=== PATIENT | male | born 1945 | race Caucasian/White ===

== ENCOUNTER → 2019-10-08 | Outpatient (CLI) | payer MEDICARE ==
[~2019-10-08] MED LIST: CINNAMON; DIOVAN HCT 1601 EACH PO; FISH OIL; FOLIC ACID1 MG PO; IRON; METFORMIN HCL500 MG PO; NAPROXEN500 MG PO; VITAMIN B12; VITAMIN D3
== END ==
LOC: CARD 08:53
PROVIDERS: ATTEND Family Medicine
DX: I73.9 Peripheral vascular disease, unspecified (principal); E11.9 Type 2 diabetes mellitus without complications; I10 Essential (primary) hypertension; I25.10 Atherosclerotic heart disease of native coronary artery without angina pectoris; E78.2 Mixed hyperlipidemia; F51.01 Primary insomnia
CPT/HCPCS: 93925

== ENCOUNTER → 2021-02-22 | Day surgery (SDC) | payer MEDICARE ==
[2021-02-17 12:14] LABS: BASOPHILS # (AUTO) 0.1 (0.0-0.1); BASOPHILS % 0.8 % (0.0-1.0); EOSINOPHILS # (AUTO) 0.1 (0.0-0.4); EOSINOPHILS % 1.8 % (0.0-6.0); HEMATOCRIT 37.9 % (38.2-49.6); HEMOGLOBIN 12.9 g/dL (14.0-18.0); LYMPHOCYTES # (AUTO) 1.3 (1.0-3.2); LYMPHOCYTES % 21.4 % (18.0-39.1); MEAN CORPUSCULAR HEMOGLOBIN 33.8 pg (28-32); MEAN CORPUSCULAR VOLUME 99.2 fL (81-99); MONOCYTES # (AUTO) 0.6 (0.2-0.8); MONOCYTES % 10.4 % (4.4-11.3); NEUTROPHILS # (AUTO) 3.9 (2.1-6.9); NEUTROPHILS % 65.3 % (38.7-80.0); PLATELET COUNT 217 x10e3/uL (140-360); RED BLOOD COUNT 3.82 x10e6/uL (4.3-5.7); RED CELL DISTRIBUTION WIDTH 14.3 % (11.7-14.4)
[2021-02-17 12:48] LABS: ANION GAP 16.2 mmol/L (8-16); CALCIUM 9.5 mg/dL (8.4-10.2); CREATININE, SERUM 1.26 mg/dL (0.72-1.25); POTASSIUM 4.2 mmol/L (3.5-5.1)
[~2021-02-22] VITALS: Ht 172.7 cm; Wt 95.3 kg
[~2021-02-22] MED LIST changes: +AMIODARONE HCL200 MG PO; +AMLODIPINE BESY10 MG PO; +ASPIRIN EC81 MG PO; +ATORVASTATIN CA20 MG PO; +BENZOCAINE 20% SPR 60 ML CAN ONE; +CINNAMON500 MG PO; +ELIQUIS5 MG PO; +FISH OIL 1,0001 EAC2 PO; +HYDRALAZINE HCL25 MG PO; -IRON; +IRON PO; +LOSARTAN POTAS100 MG PO; +METOPROLOL SUCC50 MG PO; +METOPROLOL TART50 MG PO; +MIDAZOLAM HCL 2 MG/2 ML VIAL ONE; +PANTOPRAZOLE SO40 MG PO; +POVIDONE IODINE 0.05% 0.05 % ML PO ONE; +PROPOFOL IV EMULSION 10 MG/ML 20 ML VIAL ONE; +SODIUM CHLORIDE 0.9% 1000ML 1,000 ML ONE; +VITAMIN B-121000 MCG PO; +VITAMIN D3 PO; +ZOLPIDEM TARTRAT5 MG PO
[2021-02-22 11:17] VITALS: BP 152/108
[2021-02-22 14:02] VITALS: BP 125/70
[2021-02-22 14:15] VITALS: BP 130/75
[2021-02-22 14:30] VITALS: BP 132/70
== END | disposition home or self-care (01) ==
LOC: OR 11:05
PROVIDERS: ATTEND Internal Medicine Interventional Cardiology
DX: I48.91 Unspecified atrial fibrillation (principal); I07.1 Rheumatic tricuspid insufficiency; I25.810 Atherosclerosis of coronary artery bypass graft(s) without angina pectoris; I25.2 Old myocardial infarction; I10 Essential (primary) hypertension; E11.9 Type 2 diabetes mellitus without complications; Z79.84 Long term (current) use of oral hypoglycemic drugs; Z79.02 Long term (current) use of antithrombotics/antiplatelets; Z79.82 Long term (current) use of aspirin; Z68.33 Body mass index [BMI] 33.0-33.9, adult; Z86.73 Personal history of transient ischemic attack (TIA), and cerebral infarction without residual deficits; Z95.1 Presence of aortocoronary bypass graft; Z82.49 Family history of ischemic heart disease and other diseases of the circulatory system; Z82.3 Family history of stroke; Z83.3 Family history of diabetes mellitus
CPT/HCPCS: 36415 ×2; 80048; 82948; 85025; 92960; 93005; 93312; 93320; 93325; J2250; J2704; J7030; 93307

== ENCOUNTER → 2022-07-10 | Outpatient (CLI) | payer MEDICARE ==
[~2022-07-10] MED LIST changes: -BENZOCAINE 20% SPR 60 ML CAN ONE; -MIDAZOLAM HCL 2 MG/2 ML VIAL ONE; -POVIDONE IODINE 0.05% 0.05 % ML PO ONE; -PROPOFOL IV EMULSION 10 MG/ML 20 ML VIAL ONE; -SODIUM CHLORIDE 0.9% 1000ML 1,000 ML ONE
== END ==
LOC: DX 15:01
PROVIDERS: ATTEND Family Medicine
DX: Z13.820 Encounter for screening for osteoporosis (principal); M51.36 Other intervertebral disc degeneration, lumbar region; M54.10 Radiculopathy, site unspecified; G89.4 Chronic pain syndrome
CPT/HCPCS: 77080

== ENCOUNTER 2023-06-15 09:59 | Emergency (ER) | payer MEDICARE, OTHER ==
[~2023-06-15] VITALS: Ht 172.7 cm; Wt 95.3 kg
[2023-06-15] MEDS ORDERED: HYDROCODONE/APAP 5MG-325MG TAB PO ONE (11:30)
[2023-06-15 12:50] VITALS: O2SAT 100
== END 2023-06-15 12:20 | disposition home or self-care (01) ==
LOC: ER 10:12
DX: S93.491A Sprain of other ligament of right ankle, initial encounter (principal); W18.39XA Other fall on same level, initial encounter; Y92.89 Other specified places as the place of occurrence of the external cause; I10 Essential (primary) hypertension; E11.9 Type 2 diabetes mellitus without complications; E78.5 Hyperlipidemia, unspecified; I48.91 Unspecified atrial fibrillation; K21.9 Gastro-esophageal reflux disease without esophagitis; Z95.1 Presence of aortocoronary bypass graft; Z95.810 Presence of automatic (implantable) cardiac defibrillator
CPT/HCPCS: 99284

== ENCOUNTER → 2023-07-19 | Outpatient (REF) | payer MEDICARE | LOC: RAD 15:59 | PROVIDERS: ATTEND Anesthesiology Addiction Medicine | DX: M54.6 Pain in thoracic spine (principal); M54.51 Vertebrogenic low back pain | CPT/HCPCS: 72072; 72110 ==